=== PATIENT | male | born 1965 | race Caucasian/White ===

== ENCOUNTER 2018-08-23 11:28 | Observation (INO) ==
[2018-08-23] MEDS: NS 1,000 ML IV SCH (14:24)
[2018-08-23] MEDS: HUMULIN R SUBQ SCH ×2 (16:50→21:14)
[2018-08-23] MEDS: GLUCOPHAGE PO SCH (16:51)
[2018-08-23] MEDS: NEURONTIN PO SCH ×2 (16:51→21:12)
[2018-08-23] MEDS ORDERED: BASAGLAR SUBQ SCH (21:00)
[2018-08-23] MEDS ORDERED: INSULIN PEN NEEDLES ONE (21:21)
[2018-08-24] MEDS: NS 1,000 ML IV SCH ×2 (03:06→15:05)
--- NOTE | 2018-08-24 03:27 | HISTORY AND PHYSICAL ---
CHIEF COMPLAINT: Dizzy spell, postural hypotension for the last few weeks. HISTORY OF PRESENT ILLNESS: He is a 52-year-old, pleasant, white gentleman admitted to the hospital with a near-syncope spell, dizzy. In my office yesterday, his blood pressure was low upon standing. He has significant orthostatic hypertension. Basically admitted to the hospital for rule out dysautonomia, rule out adrenal insufficiency. PAST MEDICAL HISTORY: 1. Carpal tunnel syndrome on the right side. 2. Lower back pain due to bulging disks. 3. Hyperlipidemia. 4. Kidney stones on the right side. 5. Chronic nicotine abuse. 6. Uncontrolled diabetes. 7. History of substance abuse. 8. Peripheral neuropathic ulcer on the right great toe. PAST SURGICAL HISTORY: Tonsillectomy. MEDICATIONS: Gabapentin 600 t.i.d., [place] q.6 as needed, insulin - Lantus 25 units at bedtime, metformin 500 p.o. b.i.d. ALLERGIES: Penicillin. SOCIAL HISTORY: . Unemployed. Lives in [place]. Waiting for disability. Smoking 1 pack a day. History of drug abuse. No alcohol. FAMILY HISTORY: Father of heart attack. Mom is in good health. HEALTH MAINTENANCE: Last Tdap was given 2017. Last stress test August 2016. Arterial flow studies were normal in 2018. REVIEW OF SYSTEMS: HEENT: Dizziness upon standing. Near-syncope spells. No headache, no earache, no sore throat. Neck: There is no goiter. No lymphadenopathy. No bruit. Cardiopulmonary: No chest pain, shortness of breath, PND, or orthopnea. GI: No nausea, vomiting, or abdominal pain. : No history of hesitancy, frequency, or dysuria. Musculoskeletal: No swelling of feet. No joint pain. Neurologic: No focal symptoms or weakness. PHYSICAL EXAMINATION: VITAL SIGNS: Temperature is 98 degrees, heart rate is 100, blood pressure 130/ 74. Upon standing, significantly dropped, 80/52, and tachycardic. HEENT: Examination within normal limits. NECK: Supple. No lymphadenopathy. No carotid bruit. CHEST: There is bilateral air entry. HEART: Heart sounds are regular. ABDOMEN: Belly is soft and nontender. Good bowel sounds. EXTREMITIES: No peripheral edema, cyanosis. NEUROLOGIC: No obvious neurological deficits. INVESTIGATIONS: Pending. We will check the last A1c, CBC, BMP, cortisone stimulation test in the morning. ASSESSMENT AND PLAN: 1. Complicated diabetes. Continue on Lantus and metformin. 2. Chronic neuropathic pain, on Neurontin. 3. Orthostatic hypotension. Intravenous fluids. Check the cortisol stimulation test. 4. Chronic tobacco abuse. Nicotine patches. 5. postural orthostatic hypotension. After juliana cortisol stimulation test. we will initiate the treatment. 6. Right great toe neuropathic ulcer. Continue local wound care and we will follow up. cc: Ajay Amaya MD MTDD
[2018-08-24] MEDS: HUMULIN R SUBQ SCH ×4 (06:27→18:12)
[2018-08-24 06:47] LABS: HEMATOCRIT 37.5 % (42.0-52.0); HEMOGLOBIN 12.5 g/dL (14.0-18.0); MCH 29.5 PG (27-31); MCHC 33.3 g/dL (33-37); MCV 88.4 FL (81-99); MPV 10.7 FL (7.4-10.4); RBC 4.24 XMIL (4.7-6.1); RDW 12.7 % (11.5-14.5); WBC 6.39 X1000 (4.8-10.8)
[2018-08-24 07:08] LABS: AGAP 10; BUN 20 mg/dL (8-22); CALCIUM 8.3 mg/dL (8.8-10.2); CHLORIDE 101 mmol/L (98-107); COSMO 293; CREATININE 0.9 mg/dL (0.7-1.2); ESTIMATED GFR > 60; GLUCOSE 362 mg/dL (70-104); POTASSIUM 4.8 mmol/L (3.5-5.1); SODIUM 138 mmol/L (136-145); TCO2 27 mmol/L (25-35)
[2018-08-24] MEDS ORDERED: CORTROSYN IV ONE (07:59)
[2018-08-24 08:48] LABS: HEMOGLOBIN A1C 10.6 % (4.8-6.0)
[2018-08-24] MEDS ORDERED: NICODERM PATCH TD SCH (09:00)
[2018-08-24] MEDS: GLUCOPHAGE PO SCH ×2 (10:11→16:21)
[2018-08-24] MEDS: NEURONTIN PO SCH ×2 (10:11→15:05)
[2018-08-24 14:27] VITALS: BP 160/83
--- NOTE | 2018-08-25 06:52 | PROGRESS NOTE ---
DATE: 08/24/2018 SUBJECTIVE: The patient is still orthostatic, dizzy spells. He is sleeping. OBJECTIVE: On examination, he is still orthostatic, sleeping. Physical exam, no change. Labs: CBC is normal. SMA 7 is normal. ASSESSMENT AND PLAN: Orthostatic hypotension due to dysautonomia. Waiting for cortisol, cosyntropin test. Based on that, further recommendations will be followed. If it is negative, we will consider using Florinef versus ProAmatine. We will follow up. LEVEL OF DOCUMENTATION: 25 minutes. cc: Ajay Amaya MD
== END 2018-08-24 20:20 | disposition left against medical advice (07) ==
LOC: DIRADM 11:28 → INTOOBSV 11:28 → 3N 11:52
PROVIDERS: ADMIT Internal Medicine; ATTEND Internal Medicine
CPT/HCPCS: 80048; 82533; 82948; 83036; 85027; A9270; J0834; J7030; XXXXX

== ENCOUNTER 2019-05-01 11:36 | Inpatient (IN) ==
[2019-05-01 12:18] LABS: HEMATOCRIT 35.3 % (42.0-52.0); HEMOGLOBIN 11.6 g/dL (14.0-18.0); LYMPH% 15.7 % (20.5-51.1); MCH 28.4 PG (27-31); MCHC 32.9 g/dL (33-37); MCV 86.3 FL (81-99); MONO% 7.4 % (1.7-9.3); MPV 9.7 FL (7.4-10.4); PLT 342 X1000 (130-400); RBC 4.09 XMIL (4.7-6.1); RDW 12.3 % (11.5-14.5); WBC 10.73 X1000 (4.8-10.8)
[2019-05-01 12:19] LABS: BASO# 0.03 X1000 (0.0-0.2); BASO% 0.3 % (0.0-0.8); EOS# 0.16 X1000 (0.0-0.7); EOS% 1.5 % (0.0-10.0); IMM GRAN# 0.01 X1000 (0.0-0.04); IMM GRAN% 0.1 % (0.0-0.5); LYMPH# 1.68 X1000 (1.2-3.4); MONO# 0.79 X1000 (0.11-0.59); NEUT# 8.06 X1000 (1.4-6.5)
--- NOTE | 2019-05-01 12:27 | Diag Imaging Result Doc PS360 ---
EXAM: CHEST-PORTABLE HISTORY: hypotensive int fever some cough TECHNIQUE: Chest single view COMPARISON: 04/16/2019 FINDINGS: Poor inspiratory effort. The heart is not enlarged. The vessels are not distended. There are no infiltrates. No effusion identified. IMPRESSION: No pneumonia Electronically signed by Baldemar Mendoza 05/01/2019 12:24 PM
[2019-05-01 12:35] LABS: ESTIMATED GFR > 60
[2019-05-01 12:36] LABS: PROTIME 13.7 Seconds (11.0-16.0); PTT 37.1 Seconds (22.3-41.8)
[2019-05-01 12:38] LABS: AGAP 13; ALBUMIN 3.8 g/dL (3.5-5.0); ALKALINE PHOSPHATASE 103 U/L (32-122); BUN 16 mg/dL (8-22); CALCIUM 8.7 mg/dL (8.8-10.2); CHLORIDE 91 mmol/L (98-107); COSMO 281; CREATININE 1.1 mg/dL (0.7-1.2); GOT 9 U/L (10-34); GPT 6 U/L (10-44); POTASSIUM 4.8 mmol/L (3.5-5.1); SODIUM 131 mmol/L (136-145); TCO2 28 mmol/L (25-35); TOTAL PROTEIN 7.4 g/dL (6.3-8.3)
[2019-05-01 12:39] LABS: GLUCOSE 412 mg/dL (70-104)
--- NOTE | 2019-05-01 12:39 | EKG Report ---
Test Performed on : 05/01/2019 12:19:39 PM Test Reason : hypotensive Blood Pressure : / mmHG Vent. Rate : 103 BPM Atrial Rate : 103 BPM P-R Int : 166 ms QRS Dur : 082 ms QT Int : 326 ms P-R-T Axes : 068 017 069 degrees QTc Int : 427 ms Sinus tachycardia. Possible Left atrial enlargement Septal infarct (cited on or before 16-APR-2019) Abnormal ECG When compared with ECG of 16-APR-2019 09:53, (Unconfirmed) No significant change was found Unconfirmed Result
[2019-05-01] MEDS ORDERED: NEURONTIN PO ONE (12:51)
--- NOTE | 2019-05-01 12:51 | PROVIDER DOCUMENTATION ---
This chart was entered by Shayy Leal Scribe, acting as scribe for Ernestina Bosch MD. HPI-Rash/Wound/ReCheck - General Chief Complaint: Wound Recheck Stated Complaint: (R) BIG TOE ULCER Time Seen by Provider: 05/01/19 11:55 Source: patient Allergies/Adverse Reactions: Allergies Allergy/AdvReac Type Severity Reaction Status Date / Time Penicillins Allergy Severe ANAPHYLAXIS Verified 05/01/19 12:12 Home Medications: Home Medication List Medication Instructions Recorded Confirmed Last Taken Type Gabapentin [Neurontin] 600 mg PO TID 06/24/13 05/01/19 08/22/18 21:00 History Metformin [Glucophage] 500 mg PO BID CC #60 tab 05/17/18 05/01/19 08/22/18 21:00 Rx Insulin Glargine,Hum.rec.anlog 20 unit SQ HS 05/01/19 05/01/19 Unknown History [Lantus Solostar] Sulfamethoxazole/Trimethoprim 1 tab PO BID 05/01/19 05/01/19 Unknown History [Bactrim Ds Tablet] - History of Present Illness-Dermatology Nature of Presenting Problem: Patient is a 53 year old male who presents with swelling, erythema and skin wo und to right foot. Reports he is currently on Bactrim and was on Levaquin prior to that. states patient has been having a fever intermittently. History of diabetes. Location: reports: feet (right great toe and right medial foot) Severity: reports: mild Onset/Duration: reports: gradual Timing: reports: still present Context/Associated Symptoms: reports: swelling/mass/lumps (swelling), other (erythema and skin ulcer) Locality of Occurance: Home Similar Symptoms Previously?: Yes Recently seen or treated by another doctor?: Yes Review of Systems - Adult - REVIEW OF SYSTEMS - ADULT Constitutional: reports: see HPI, fever. denies: chills, fatique Eyes: reports: no symptoms reported Ears, Nose, Mouth & Throat: reports: no symptoms reported Cardiovascular: reports: no symptoms reported Respiratory: reports: no symptoms reported Gastrointestinal: reports: no symptoms reported Genitourinary: reports: no symptoms reported Musculoskeletal: reports: no symptoms reported Integumentary: reports: see HPI, skin sores/ulcer (right foot), other (swelling and erythema to right foot). denies: hives, itching Neurological: reports: no symptoms reported Psychiatric: reports: no symptoms reported Endocrine: reports: no symptoms reported Hematologic/Lymphatic: reports: no symptoms reported Allergic/Immunologic: reports: no symptoms reported All Other Systems: Reviewed and Negative Past History - Adult - PAST MEDICAL HISTORY-ADULT Review of Records: reports: Old Records Reviewed, Social history reviewed & non- contributory. Major Childhood Illnesses: reports: denies history Cardiovascular: reports: denies history Respiratory: reports: denies history Gastrointestinal: reports: denies history Obstetrical/Gynecological: reports: denies history Genitourinary: reports: denies history Musculoskeletal: reports: chronic pain Neurological: reports: other (diabetic neuropathy, syncopal episodes.) Endocrine/Immune: reports: Diabetes Other Conditions: reports: denies history - PRIOR SURGERIES/PROCEDURES Surgical/Procedure History: reports: tonsillectomy - IMMUNIZATION STATUS Childhood Immunizations: See Nurse Assessment Flu Vaccine: See Nurse Assessment - FAMILY HISTORY Family History: reviewed, not pertinent - SOCIAL HISTORY Smoking: cigarettes, greater than 1 pack/day Provider spent 3-5 mins advising pt. on dangers of tobacco.: Discussed manners to quit use, and f/u contacts for add'l counseling. Substance Use: denies Living Situation: family Physical Exam-General - PHYSICAL EXAM-ADULT Initial Vital Signs Reviewed: Yes - CONSTITUTIONAL General Appearance: alert, no apparent distress. negative: lethargic - HEAD, EARS, NOSE, MOUTH & THROAT HENMT: normocephalic/atraumatic, moist mucous membranes. negative: angioedema - RESPIRATORY Respiratory: chest non-tender, lungs clear, normal breath sounds. negative: crackles, wheezing - CARDIOVASCULAR Cardiovascular: normal peripheral pulses, tachycardia. negative: systolic murmur - GASTROINTESTINAL (ABDOMEN) Abdominal Exam: normal bowel sounds, non tender, soft. negative: guarding, rebound - MUSCULOSKELETAL Extremity: non-tender, erythema (right great toe and right medial foot), swelling (right great toe and right medial foot.), other (healing skin ulcer to right medial foot.). negative: deformity - SKIN Integumentary: erythema (right great toe and right medial foot), swelling (right great toe and right medial foot), other (healing skin ulcer to right medial foot.). negative: cyanosis - NEUROLOGIC Neurologic: grossly normal. negative: aphasia, facial droop - PSYCHIATRIC Psych/Mental Status: normal mood/affect, oriented x 3. negative: anxious Progress - PLAN OF CARE/RESULTS Result Diagrams: 05/02/19 06:35 05/02/19 06:30 - EKG 1 Time of EKG reading by physician:: 12:19 EKG Read and Signed by:: Ernestina Bosch EKG Interpretation (*Must complete 3 of following elements*): Abnormal (septal infarct, age undetermined) Rate: 103 Rhythm: sinus tachycardia Eros: normal MT Interval: normal Comments: possible left atrial enlargement; - XRAY 1 XRAY Study: Chest Impression: See EMR Report ( EXAM: CHEST-PORTABLE HISTORY: hypotensive int fever some cough TECHNIQUE: Chest single view COMPARISON: 04/16/2019 FINDINGS: Poor inspiratory effort. The heart is not enlarged. The vessels are not distended. There are no infiltrates. No effusion identified. IMPRESSION: No pneumonia Electronically signed by Baldemar Mendoza 05/01/2019 12:24 PM 05/01/19 1224 Interpreting Physician: Baldemar Mendoza MD Dictated Date/Time: 05/01/19 1224 cc: Ernestina Bosch MD; Sadi Álvarez MD) 2 XRAY: Right XRAY Study: Foot Impression: See EMR Report (EXAM: FOOT COMPLETE RIGHT HISTORY: rule out osteomyelitis TECHNIQUE: Right foot, three views COMPARISON: 05/13/2018 FINDINGS: No fracture. No dislocation. Small calcaneal bone spur. Minimal narrowing to the first metatarsal phalangeal joint. No bone erosions. No periosteal reaction. IMPRESSION: No plain film evidence of osteomyelitis. If clinical suspicion persists an MRI is recommended. Electronically signed by Baldemar Mendoza 05/01/2019 12:58 PM 05/01/19 1258 Interpreting Physician: Baldemar Mendoza MD Dictated Date/Time: 05/01/19 1257 cc: Ernestina Bosch MD; Sadi Álvarez MD) - CONSULTS/PCP/HOSPITALIST Notification #1 *Consult/PCP/Hospitalist*: Dr. Christine Time Discussed: : Reason/Comments: Dr. Bosch consulted with Dr. Christine about patient Consult Disposition: Will see in ED, Admit Departure - Departure Date of Disposition Decision: 05/01/19 Time of Disposition Decision: 13:19 DIAGNOSIS: Diabetic toe ulcer, Toe infection Disposition: ADMITTED INPATIENT 09 Certified Medical Emergency: Emergent Condition: Stable - Critical Care Note This patient required my direct & personal management of CC.: No Attestation - Physician/ MARITZA Attestation Patient care was provided by Advanced Practice Provider:: No The physician spent face to face time with patient:: Yes Advanced Practice Provider documentation review:: Supervising physician onsite and consulted in the evaluation and care of this patient. The physician did have a face to face encounter with the patient. This chart was documented by the indicated scribe, (Shayy Leal Scribe) and accurately reflects the services I performed and decisions made by me, Ernestina Bosch MD, as attested by the provider's signature.
--- NOTE | 2019-05-01 13:00 | Diag Imaging Result Doc PS360 ---
EXAM: FOOT COMPLETE RIGHT HISTORY: rule out osteomyelitis TECHNIQUE: Right foot, three views COMPARISON: 05/13/2018 FINDINGS: No fracture. No dislocation. Small calcaneal bone spur. Minimal narrowing to the first metatarsal phalangeal joint. No bone erosions. No periosteal reaction. IMPRESSION: No plain film evidence of osteomyelitis. If clinical suspicion persists an MRI is recommended. Electronically signed by Baldemar Mendoza 05/01/2019 12:58 PM
[2019-05-01] MEDS ORDERED: VANCOMYCIN 1 GM/NS 1 GM/250 ML IVPB IV ONE (13:01)
[2019-05-01] MEDS ORDERED: ROCEPHIN IV ONE (13:01)
[2019-05-01] MEDS ORDERED: NS 1,000 ML ONE (13:02)
[2019-05-01] MEDS ORDERED: NS 1,000 ML IV ONE (13:05)
[2019-05-01] MEDS ORDERED: HUMULIN R IV ONE (13:05)
[2019-05-01] MEDS ORDERED: HUMULIN R (PARKWAY) ONE (13:06)
[2019-05-01] MEDS ORDERED: ZOFRAN IV PRN (13:26)
[2019-05-01] MEDS ORDERED: TYLENOL PO PRN (13:26)
[2019-05-01] MEDS ORDERED: ZOSYN 3.375 GM in NS 50 ML IV SCH (13:30)
[2019-05-01] MEDS ORDERED: VANCOMYCIN IV PER PHARMACY MISC SCH (13:30)
[2019-05-01] MEDS ORDERED: VANCOMYCIN 1,850 MG in NS 500 ML IV ONE (15:00)
[2019-05-01 15:34] LABS: INR 0.98; PROTIME 13.5 Seconds (11.0-16.0); PTT 37.1 Seconds (22.3-41.8)
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
[2019-05-01] MEDS: NEURONTIN PO SCH ×3 (16:01→21:04)
--- NOTE | 2019-05-01 19:03 | HISTORY AND PHYSICAL ---
ADDENDUM: Patient seen and examined by myself, full note dictated and discussed with nurse practitioner. Patient presented to the hospital with right great toe swelling, pain and infection. Notes it has been draining pus. Does note that he has been treated in the past and it seemed to be getting better however his father was recently in [facility] and he had done a lot of walking. Patient also notes his blood sugar has been elevated. We are going to admit him to the hospital, IV fluids, antibiotics, place him on sliding scale insulin and will follow. cc: Harish Christine MD
[2019-05-01] MEDS: HUMALOG (PARKWAY) SUBQ SCH ×2 (19:34→21:05)
[2019-05-02] MEDS: HUMALOG (PARKWAY) SUBQ SCH ×4 (06:27→20:41)
[2019-05-02 06:54] LABS: HEMATOCRIT 31.4 % (42.0-52.0); MCH 27.9 PG (27-31); MCHC 31.8 g/dL (33-37); MCV 87.7 FL (81-99); MPV 9.7 FL (7.4-10.4); RBC 3.58 XMIL (4.7-6.1); RDW 12.6 % (11.5-14.5); WBC 7.15 X1000 (4.8-10.8)
[2019-05-02 07:03] LABS: HEMOGLOBIN A1C 12.3 % (4.8-6.0)
[2019-05-02 07:15] LABS: AGAP 10; ALBUMIN 3.1 g/dL (3.5-5.0); ALKALINE PHOSPHATASE 87 U/L (32-122); BUN 18 mg/dL (8-22); CALCIUM 9.1 mg/dL (8.8-10.2); CHLORIDE 99 mmol/L (98-107); COSMO 291; CREATININE 0.9 mg/dL (0.7-1.2); ESTIMATED GFR > 60; GLUCOSE 372 mg/dL (70-104); GOT 6 U/L (10-34); GPT 5 U/L (10-44); MAGNESIUM 1.6 mg/dL (1.5-2.7); POTASSIUM 4.6 mmol/L (3.5-5.1); SODIUM 137 mmol/L (136-145); TCO2 28 mmol/L (25-35); TOTAL PROTEIN 6.4 g/dL (6.3-8.3)
[2019-05-02] MEDS: VANCOMYCIN 1,350 MG in NS 250 ML IV SCH (08:28)
[2019-05-02] MEDS: NEURONTIN PO SCH ×3 (08:28→20:41)
[2019-05-02] MEDS ORDERED: ROCEPHIN 1 GM in NS 50 ML IV SCH (14:00)
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
[2019-05-02 15:45] LABS: UR AMPHETAMINES QUAL PRESUMPTIVE POSITIVE (NONE DETECT); UR BARBITUATES QUAL NONE DETECTED (NONE DETECT); UR BENZODIAZEPIN QUAL NONE DETECTED (NONE DETECT); UR CANNABINOIDS QUAL NONE DETECTED (NONE DETECT); UR COCAINE QUAL NONE DETECTED (NONE DETECT); UR METHADONE QUAL NONE DETECTED (NONE DETECT); UR METHAMPHETAMINE QUAL PRESUMPTIVE POSITIVE (NONE DETECT); UR OPIATES QUAL NONE DETECTED (NONE DETECT); UR OXYCODONE QUAL NONE DETECTED (NONE DETECT); UR PCP QUAL NONE DETECTED (NONE DETECT); UR PROPOXYPHENE QUAL NONE DETECTED (NONE DETECT); UR TCA QUAL NONE DETECTED (NONE DETECT)
--- NOTE | 2019-05-02 15:45 | PROGRESS NOTE ---
DATE: 05/02/2019 SUBJECTIVE: Patient reports feeling fine. Denies any fever or chills. OBJECTIVE: Vital Signs: Temperature 98.4 degrees, heart rate 95, respiratory rate 18, blood pressure 107/72, O2 saturation is 99% on room air. General Examination: This is a 53-year-old male, lying in bed, in no acute distress. Cardiovascular: S1, S2 heard. No murmurs, gallops, or rubs. Regular rate and rhythm. Respiratory: Clear bilaterally to auscultation. No work of breathing or using accessory muscles. Abdomen: Soft. Nontender to palpation. Bowel sounds present. No organomegaly. Extremities: No clubbing, cyanosis, or edema. There are 3 openings around the great toe. There is some purulent drainage coming out. Neurological: Patient is alert and oriented x3. Moves 4 extremities. LABORATORY DATA: White cell count 7.15, hemoglobin 10.0, hematocrit 31.4, platelets 308,000. Normal BMP except glucose 372 with hemoglobin A1c of 12.3. ASSESSMENT AND PLAN: 1. Right great toe cellulitis with wound infection. The patient is on antibiotics, in this case vancomycin and cefepime. For a possible surgical approach, Dr. Crawford has evaluated this patient and he thinks that no surgical options are warranted for this patient. Because of suspicion for possible lower extremity osteomyelitis, we are going to order an MRI because patient reports that he has had this type of infection in the foot for almost a year, so will see what that exam shows. 2. Diabetes mellitus type 2. That condition is not well controlled at all. At this point, we will continue with sliding scale insulin and diabetic diet. We will continue to monitor. 3. Methamphetamine abuse. Patient has been recommended to stop abusing drugs. 4. Tobacco abuse. Cessation discussed. 5. Disposition. We will continue with the same antibiotic management. cc: Sebastian Ron MD
--- NOTE | 2019-05-02 16:41 | Diag Imaging Result Doc PS360 ---
EXAM: MRI LOWER EXT W/WO CON-RIGHT 05/02/2019 HISTORY: r/o osteomyelitis TECHNIQUE: Coronal T1, STIR, sagittal T1, T2, axial T2 and STIR, coronal T1 fat sat and sagittal T1 fat sat post gadolinium. COMMENT: There is decreased T1-weighted signal intensity present in the proximal and distal phalanges of the great toe around the interphalangeal joint. There is corresponding increased T2-weighted signal intensity in the head of the first metatarsal. There is increased T2-weighted signal intensity in the surrounding soft tissues in the great toe. This extends into the plantar soft tissues at the metatarsophalangeal joint region and below. There is increased gadolinium enhancement in the base of the distal phalanx and the distal proximal phalanx as well as the head of the metatarsal of the great toe. IMPRESSION: Osteomyelitis in the phalanges of the great toe with probable septic arthritis in the interphalangeal joint, probable osteomyelitis in the distal first metatarsal. Electronically signed by Alex Milan 05/02/2019 4:38 PM
[2019-05-02 17:00] LABS: URINE SOURCE CLEAN CATCH
[2019-05-02 17:16] LABS: BILIRUBIN URINE NEGATIVE (NEGATIVE); BLOOD URINE NEGATIVE (NEGATIVE); CLARITY CLEAR (CLEAR); COLOR YELLOW; KETONE URINE NEGATIVE (NEGATIVE); LEUKOCYTES URINE NEGATIVE (NEGATIVE); NITRITE URINE NEGATIVE (NEGATIVE); PROTEIN URINE TRACE mg/dL (NEGATIVE); UROBILINOGEN URINE 8 mg/dL
[2019-05-02 17:17] LABS: URINE BACTERIA 1+ /HFP; URINE CAST NONE SEEN /LPF; URINE CRYSTAL NONE SEEN /HPF; URINE EPITHELIAL CELLS <10 /HPF (<10); URINE RBC <10 /HPF (<10); URINE WBC <10 /HPF (<10); URINE YEAST NONE SEEN /HPF
[2019-05-02] MEDS: MAXIPIME 1 GM in NS 50 ML IV SCH (17:43)
[2019-05-02] MEDS: NICODERM PATCH TD SCH (17:43)
[2019-05-03] MEDS: HUMALOG (PARKWAY) SUBQ SCH ×3 (00:02→12:17)
[2019-05-03] MEDS: MAXIPIME 1 GM in NS 50 ML IV SCH (02:06)
[2019-05-03] MEDS: VANCOMYCIN 1,350 MG in NS 250 ML IV SCH (03:16)
[2019-05-03 06:34] LABS: BASO# 0.02 X1000 (0.0-0.2); BASO% 0.2 % (0.0-0.8); EOS# 0.15 X1000 (0.0-0.7); EOS% 1.7 % (0.0-10.0); HEMATOCRIT 29.2 % (42.0-52.0); HEMOGLOBIN 9.3 g/dL (14.0-18.0); IMM GRAN# 0.01 X1000 (0.0-0.04); IMM GRAN% 0.1 % (0.0-0.5); LYMPH# 1.96 X1000 (1.2-3.4); LYMPH% 21.6 % (20.5-51.1); MCHC 31.8 g/dL (33-37); MONO# 0.73 X1000 (0.11-0.59); MONO% 8.1 % (1.7-9.3); NEUT# 6.19 X1000 (1.4-6.5); NEUT% 68.3 % (42.2-75.2); PLT 301 X1000 (130-400); RBC 3.32 XMIL (4.7-6.1); RDW 12.6 % (11.5-14.5); WBC 9.06 X1000 (4.8-10.8)
[2019-05-03 06:46] LABS: AGAP 10; BUN 24 mg/dL (8-22); CHLORIDE 99 mmol/L (98-107); COSMO 291; CREATININE 0.8 mg/dL (0.7-1.2); ESTIMATED GFR > 60; GLUCOSE 394 mg/dL (70-104); POTASSIUM 4.3 mmol/L (3.5-5.1); SODIUM 135 mmol/L (136-145); TCO2 25 mmol/L (25-35)
--- NOTE | 2019-05-03 08:28 | VASCULAR LAB ---
DATE: 05/02/2019 ROTARY ENGRAVER: Roosevelt. REQUESTING PHYSICIAN: Dr. Crawford. INDICATIONS: Ulceration of the right foot. Exam for comparison is 01/17/2013. FINDINGS: Brachial on the right is 122, on the left 118. High thigh on the right is 145, on the left 142. Low thigh on the right 154, on the left 146. Calf on the right is 112, on the left 127. DP on the right is 123, on the left 140. PT on the right is 118, on the left 124. Toe pressure on the right 38, on the left 59. ANNE on the right is 1.01, on the left is 1.15. Toe brachial indices on the right is 0.31, on the left 0.48. FINDINGS: There is normal ABIs bilaterally and similar to prior study from 2012. There is some depression of the toe waveforms, worse on the right than the left with near flat line noted of the right toe. Although ABIs were normal, given blunting of the toe indices could suggest some degree of small vessel disease. cc: MD Blanco Tello MD
[2019-05-03] MEDS ORDERED: LANTUS INSULIN SUBQ SCH (09:00)
[2019-05-03] MEDS: NEURONTIN PO SCH (10:05)
[2019-05-03] MEDS: NICODERM PATCH TD SCH (10:05)
[2019-05-03 12:09] VITALS: BP 96/64
--- NOTE | 2019-05-03 12:19 | PROGRESS NOTE ---
DATE: 05/03/2019 SUBJECTIVE: The patient reports feeling fine. Denies any fever or chills. OBJECTIVE: Vital Signs: Temperature 98.2 degrees, heart rate 97, respiratory rate 17, blood pressure 111/68, O2 saturation 99% on room air. General: This is a 53-year-old male, lying in bed in no acute distress. Cardiovascular: S1 and S2 heard. No murmurs, gallops, or rubs. Regular rate and rhythm. Respiratory: Clear bilaterally to auscultation. No work of breathing or using accessory muscles. Abdomen: Soft, nontender to palpation. Bowel sounds present. No organomegaly. Extremities: No clubbing, cyanosis, or edema. Peripheral pulses present in both legs. There are 3 openings around the great toe now. The foot is covered by dressing. Some purulent drainage noted yesterday, but not today. Neurological: The patient is alert and oriented x3. Moves all 4 extremities. IMAGING AND LABORATORY DATA: Laboratory data reviewed. The MRI of the left lower extremity showed osteomyelitis in the phalanges of the great toe, with probable septic arthritis in the interphalangeal joint, probably osteomyelitis in the distal first metatarsal. ASSESSMENT AND PLAN: 1. Left great toe osteomyelitis and possible septic arthritis. The patient had this wound for about a year, that was getting better, and [facility]. He has been evaluated by Dr. Crawford yesterday before the MRI was done, and he plans to do just antibiotic therapy. With those findings from the MRI and also septic arthritis as well, I prefer to send this patient over to [facility] for possible surgical approach, and also for Infectious Disease consultation as well. The arterial extremity studies show normal ankle brachial indices bilaterally. I think, considering these results, his likelihood for healing is better, so will continue with current antibiotic management, which in this case is cefepime and vancomycin, and will consult Infectious Disease upon transfer. 2. Diabetes mellitus type 2. White cell count is normal, but blood sugars are still high, I think because of the osteomyelitis. At this point, will start Lantus on this patient twice daily, and will go from there. 3. Methamphetamine abuse. The patient is recommended to stop using drugs. 4. Tobacco abuse. Cessation discussed with this patient again. 5. Disposition. The patient is being transferred to [facility] for further evaluation and treatment. Addendum: Patient refused to go to [facility]. We also have talked with Dr. Bella from Orthopedic regarding septic arthritis and he does not need any wash out of that joint. At this point will talk with Dr. Crawford to see if this patient is a candidate for surgery or not considering his new diagnosis of osteomyelitis. Will contact Dr. Mae for an advise for management of antibiotics. cc: Sebastian Ron MD [facility]
== END 2019-05-03 16:10 | disposition left against medical advice (07) | DRG 638 ==
LOC: P.ED 11:36 → P.MEDSURG 11:37 → SUATTDRO 11:37
PROVIDERS: ATTEND Internal Medicine